=== PATIENT | male | born 1985 | race African-American/Black ===

== ENCOUNTER 2025-03-24 13:21 | Outpatient (CLI) | payer OTHER, SELFPAY ==
--- NOTE | 2025-03-24 13:40 | NEURO_ITS ---
Impression: # Complains of left upper extremity discomfort. ? # No Carpal Tunnel Syndrome ? # No Ulnar Neuropathy. ? # Normal Needle/ EMG exam. ? # MRI of cervical spine suggested. Nerve Conduction Studies ?Stim Site NR Peak (ms) P-T Amp (?V) Site1 Site2 Delta-P (ms) Dist (cm) [place] (m/s) Left Median Anti Sensory (2-3nd Digit) Wrist ? 2.4 34.3 Wrist 2-3nd Digit 2.4 14.0 58 ? 2.4 30.7 Wrist 2-3nd Digit 2.4 14.0 58 Right Median Anti Sensory (2-3nd Digit) Wrist ? 2.3 26.2 Wrist 2-3nd Digit 2.3 14.0 61 Wrist ? 2.3 26.7 Wrist 2-3nd Digit 2.3 14.0 61 Left Radial Anti Sensory (Base 1st Digit) Wrist ? 1.6 16.4 Wrist Base 1st Digit 1.6 0.0 Right Radial Anti Sensory (Base 1st Digit) Wrist ? 1.9 16.6 Wrist Base 1st Digit 1.9 0.0 Left Ulnar Anti Sensory (5th Digit) Wrist ? 2.2 22.5 Wrist 5th Digit 2.2 14.0 64 Right Ulnar Anti Sensory (5th Digit) Wrist ? 2.2 19.6 Wrist 5th Digit 2.2 14.0 64 ?Stim Site NR Onset (ms) O-P Amp (mV) Site1 Site2 Delta-0 (ms) Dist (cm) [place]org[place] (m/s) Left Median Motor (Abd Poll Brev) Wrist ? 2.7 7.6 Elbow Wrist 4.7 30.0 64 Elbow ? 7.4 6.8 Right Median Motor (Abd Poll Brev) Wrist ? 2.8 3.7 Elbow Wrist 4.7 29.0 62 Elbow ? 7.5 4.5 Left Ulnar Motor (Abd Dig Minimi) Wrist ? 2.1 8.6 A Elbow Wrist 5.0 31.0 62 A Elbow ? 7.1 9.1 B Elbow Wrist 3.7 24.0 65 B Elbow ? 5.8 7.4 Right Ulnar Motor (Abd Dig Minimi) Wrist ? 2.3 6.2 A Elbow Wrist 5.3 32.0 60 A Elbow ? 7.6 6.0 B Elbow Wrist 3.9 22.0 56 B Elbow ? 6.2 6.1 F Wave Studies ?NR F-Lat (ms) L-R F-Lat (ms) Left Median (Mrkrs) (Abd Poll Brev) ? 25.78 0.65 Right Median (Mrkrs) (Abd Poll Brev) ? 25.13 0.65 Left Ulnar (Mrkrs) (Abd Dig Min) ? 27.45 0.02 Right Ulnar (Mrkrs) (Abd Dig Min) ? 27.42 0.02 Electromyography ?Side Muscle Nerve Root Ins Act Fibs Amp Dur Recrt Comment Right 1stDorInt Ulnar C8-T1 Nml Nml Nml Nml Nml Right Ext Indicis Radial (Post Int) C7-8 Nml Nml Nml Nml Nml Right Ext Digitorum Radial (Post Int) C7-8 Nml Nml Nml Nml Nml Right BrachioRad Radial C5-6 Nml Nml Nml Nml Nml Right PronatorTeres Median C6-7 Nml Nml Nml Nml Nml Right Abd Poll Brev Median C8-T1 Nml Nml Nml Nml Nml Right ABD Dig Min Ulnar C8-T1 Nml Nml Nml Nml Nml Right FlexPolLong Median (Ant Int) C7-8 Nml Nml Nml Nml Nml Right Abd Poll Long Radial (Post Int) C7-8 Nml Nml Nml Nml Nml Left 1stDorInt Ulnar C8-T1 Nml Nml Nml Nml Nml Left Ext Indicis Radial (Post Int) C7-8 Nml Nml Nml Nml Nml Left Ext Digitorum Radial (Post Int) C7-8 Nml Nml Nml Nml Nml Left BrachioRad Radial C5-6 Nml Nml Nml Nml Nml Left PronatorTeres Median C6-7 Nml Nml Nml Nml Nml Left Abd Poll Brev Median C8-T1 Nml Nml Nml Nml Nml Left ABD Dig Min Ulnar C8-T1 Nml Nml Nml Nml Nml Left FlexPolLong Median (Ant Int) C7-8 Nml Nml Nml Nml Nml Left Abd Poll Long Radial (Post Int) C7-8 Nml Nml Nml Nml Nml
== END 2025-03-24 13:22 | disposition home or self-care (01) ==
LOC: ANHNEURO 13:23
PROVIDERS: Visit Provider Internal Medicine
DX: G56.03 Carpal tunnel syndrome, bilateral upper limbs (principal); F41.9 Anxiety disorder, unspecified; E07.9 Disorder of thyroid, unspecified; I10 Essential (primary) hypertension; J45.909 Unspecified asthma, uncomplicated; G40.909 Epilepsy, unspecified, not intractable, without status epilepticus; K02.53 Dental caries on pit and fissure surface penetrating into pulp; K04.2 Pulp degeneration; K04.7 Periapical abscess without sinus; K02.9 Dental caries, unspecified; G43.909 Migraine, unspecified, not intractable, without status migrainosus; K04.1 Necrosis of pulp; F32.9 Major depressive disorder, single episode, unspecified; L30.9 Dermatitis, unspecified; M19.90 Unspecified osteoarthritis, unspecified site
CPT/HCPCS: 95886; 95911